=== PATIENT | female | born 1995 ===

== ENCOUNTER 2023-08-01 13:15 | Outpatient (CLI) | payer OTHER | END 2023-08-01 13:16 | disposition home or self-care (01) | LOC: CT 13:15 | PROVIDERS: ATTEND Nurse Practitioner Family | DX: N20.9 Urinary calculus, unspecified (principal); N94.10 Unspecified dyspareunia; R10.812 Left upper quadrant abdominal tenderness; M54.59 Other low back pain; R30.0 Dysuria | CPT/HCPCS: 74176 ==